=== PATIENT | female | born 1950 | race Caucasian/White ===

== ENCOUNTER 2020-12-21 04:26 | Outpatient (CLI) | payer MEDICARE, OTHER, SELFPAY ==
[2020-12-21 08:14] LABS: Abs Immature Grans 0.01 10^3/uL (0.0-0.06); Absolute Eosinophil Count 0.15 10^3/uL (0.0-0.7); Absolute Monocyte Count 0.79 10^3/uL (0.1-0.8); Absolute Neutrophil Count 3.51 10^3/uL (1.2-6.7); Basophils % 1.7; Eosinophils % 2.5; HCT 42.2 % (36.0-46.0); Immature Grans % 0.2; Lymphocytes % 24.8; MCH 28.3 pg (27.0-33.0); MCHC 33.2 % (32.0-36.0); MCV 85.3 fL (80-95); MPV 8.4 fL (8.0-11.0); Neutrophils % 57.8; Nucleated RBC 0 %; Platelet Count 408 10^3/uL (130-400); RBC 4.95 10^6/uL (3.93-5.22); RDW 13.3 % (11.7-14.6); RDW-SD 41.2 fL; WBC 6.06 10^3/uL (4.4-10.8)
[2020-12-21 08:27] LABS: ALT 14 U/L (14-59); AST 13 U/L (15-37); Albumin 3.7 g/dL (3.4-5.0); Alkaline Phosphatase 82 U/L (46-116); Anion Gap 12.4 mmol/L (3-11); BUN 10 mg/dL (7-18); Bilirubin, Total 0.4 mg/dL (0.2-1.0); CO2 24.6 mmol/L (21.0-32.0); CREATININE 0.9 mg/dL (0.55-1.02); Calcium 9.3 mg/dL (8.5-10.1); Chloride 102 mmol/L (98-107); Glucose 75 mg/dL (74-106); Potassium 4.1 mmol/L (3.5-5.1); Sodium 139 mmol/L (136-145); Total Protein 7.6 g/dL (6.4-8.2)
== END 2020-12-21 04:27 | disposition home or self-care (01) ==
LOC: LBO 04:27
PROVIDERS: PCP Family Medicine; Visit Provider Internal Medicine Medical Oncology
DX: C34.91 Malignant neoplasm of unspecified part of right bronchus or lung (principal)
CPT/HCPCS: 36415; 80053; 83735; 85025

== ENCOUNTER 2021-01-11 03:16 | Outpatient (RCR) | payer MEDICARE, OTHER, SELFPAY ==
[2021-01-04 13:38] LABS: Abs Immature Grans 0.02 10^3/uL (0.0-0.06); HCT 34.6 % (36.0-46.0); MCH 28.5 pg (27.0-33.0); MCHC 34.7 % (32.0-36.0); MCV 82.2 fL (80-95); MPV 8.5 fL (8.0-11.0); Nucleated RBC 0 %; RBC 4.21 10^6/uL (3.93-5.22); RDW 12.8 % (11.7-14.6); RDW-SD 37.4 fL
[2021-01-04 13:48] LABS: ALT 13 U/L (14-59); AST 8 U/L (15-37); Alkaline Phosphatase 76 U/L (46-116); Anion Gap 13.1 mmol/L (3-11); BUN 11 mg/dL (7-18); Bilirubin, Total 0.4 mg/dL (0.2-1.0); CO2 23.9 mmol/L (21.0-32.0); CREATININE 0.9 mg/dL (0.55-1.02); Calcium 8.8 mg/dL (8.5-10.1); Chloride 98 mmol/L (98-107); Glucose 116 mg/dL (74-106); Magnesium 1.8 mg/dL (1.8-2.4); Sodium 135 mmol/L (136-145)
[2021-01-04 14:06] LABS: Potassium 2.8 mmol/L (3.5-5.1)
[2021-01-04 14:13] LABS: Absolute Lymphocyte Count 0.82 10^3/uL (1.2-3.4); Atypical Lymphocytes % 8; Bands % 6
[2021-01-04 14:14] LABS: Absolute Monocyte Count 0.73 10^3/uL (0.1-0.8)
[2021-01-04 14:15] LABS: Platelet Count 307 10^3/uL (130-400); WBC 1.91 10^3/uL (4.4-10.8)
[2021-01-04 14:16] LABS: Absolute Neutrophil Count 0.36 10^3/uL (1.2-6.7); Diff Comment Manual Differential; RBC Morphology Normal
[2021-01-11 08:46] LABS: Abs Immature Grans 1.03 10^3/uL (0.0-0.06); HCT 33.3 % (36.0-46.0); HGB 11.3 g/dL (11.2-15.7); MCH 28.5 pg (27.0-33.0); MCHC 33.9 % (32.0-36.0); MCV 83.9 fL (80-95); MPV 8.3 fL (8.0-11.0); Nucleated RBC 0 %; RBC 3.97 10^6/uL (3.93-5.22); RDW 14.1 % (11.7-14.6); RDW-SD 42.4 fL; WBC 9.55 10^3/uL (4.4-10.8)
[2021-01-11 08:56] LABS: ALT 18 U/L (14-59); AST 16 U/L (15-37); Alkaline Phosphatase 101 U/L (46-116); Anion Gap 11.3 mmol/L (3-11); BUN 6 mg/dL (7-18); Bilirubin, Total 0.2 mg/dL (0.2-1.0); CO2 25.7 mmol/L (21.0-32.0); CREATININE 0.8 mg/dL (0.55-1.02); Calcium 8.8 mg/dL (8.5-10.1); Chloride 103 mmol/L (98-107); Glucose 83 mg/dL (74-106); Magnesium 1.9 mg/dL (1.8-2.4); Potassium 3.9 mmol/L (3.5-5.1); Sodium 140 mmol/L (136-145); Total Protein 6.6 g/dL (6.4-8.2)
[2021-01-11] MEDS: Normal Saline Flush 10 ML SYR IVP (08:56)
[2021-01-11 09:27] LABS: Absolute Neutrophil Count 6.02 10^3/uL (1.2-6.7); Bands % 4; Platelet Count 624 10^3/uL (130-400)
[2021-01-11 09:28] LABS: Absolute Lymphocyte Count 1.81 10^3/uL (1.2-3.4); Absolute Monocyte Count 0.96 10^3/uL (0.1-0.8); Diff Comment Manual Differential; Metamyelocytes % 2; Myelocytes % 6
[2021-01-11 09:29] LABS: RBC Morphology Normal
== END 2021-01-15 23:59 | disposition home or self-care (01) ==
LOC: INF 03:16
PROVIDERS: PCP Family Medicine; Visit Provider Internal Medicine Medical Oncology
DX: C34.91 Malignant neoplasm of unspecified part of right bronchus or lung (principal)
CPT/HCPCS: 36415; 80053; 83735; 85025

== ENCOUNTER 2021-01-22 17:50 | Outpatient (REF) | payer MEDICARE, OTHER, SELFPAY ==
[2021-01-22 19:10] LABS: Bilirubin Negative (Negative); Blood Trace-intact (Negative); Clarity Clear (Clear); Glucose Negative (Negative); Ketones Negative (Negative); Leukocyte Esterase Negative (Negative); Nitrite Negative (Negative); Urobilinogen 0.2 EU/dL (Up TO 0.2); pH 5.5 (5-8)
[2021-01-22 19:30] LABS: Bacteria Negative HPF (Negative); C & S Indicated? No; Casts Negative LPF (Negative); Crystals Negative HPF (Negative); Epithelial Cells Rare HPF (Negative); Mucus Negative (Negative); Other Cells Negative (Negative); RBC 0-2 HPF (0-2); WBC 0-2 HPF (0-5)
== END 2021-01-22 17:51 | disposition home or self-care (01) ==
LOC: LBN 17:50
PROVIDERS: PCP Family Medicine; Visit Provider Radiology Radiation Oncology
DX: C34.91 Malignant neoplasm of unspecified part of right bronchus or lung (principal); R10.9 Unspecified abdominal pain
CPT/HCPCS: 81003; 81015

== ENCOUNTER 2021-02-01 02:41 | Outpatient (RCR) | payer MEDICARE, OTHER, SELFPAY ==
[2021-02-01] MEDS: Normal Saline Flush 10 ML SYR IVP (08:09)
[2021-02-01 08:30] LABS: Abs Immature Grans 0.39 10^3/uL (0.0-0.06); HGB 9.5 g/dL (11.2-15.7); MCH 28.4 pg (27.0-33.0); MCHC 33.9 % (32.0-36.0); MCV 83.8 fL (80-95); MPV 8.6 fL (8.0-11.0); RBC 3.34 10^6/uL (3.93-5.22); RDW 15.8 % (11.7-14.6); WBC 7.46 10^3/uL (4.4-10.8)
[2021-02-01 08:47] LABS: ALT 14 U/L (14-59); AST 15 U/L (15-37); Albumin 2.7 g/dL (3.4-5.0); Alkaline Phosphatase 82 U/L (46-116); Anion Gap 6.3 mmol/L (3-11); BUN 7 mg/dL (7-18); Bilirubin, Total 0.2 mg/dL (0.2-1.0); CO2 29.7 mmol/L (21.0-32.0); CREATININE 0.8 mg/dL (0.55-1.02); Calcium 8.2 mg/dL (8.5-10.1); Chloride 105 mmol/L (98-107); Glucose 105 mg/dL (74-106); Magnesium 1.5 mg/dL (1.8-2.4); Sodium 141 mmol/L (136-145); Total Protein 5.7 g/dL (6.4-8.2)
[2021-02-01 09:00] LABS: Potassium 2.5 mmol/L (3.5-5.1)
[2021-02-01 09:12] LABS: Absolute Lymphocyte Count 1.19 10^3/uL (1.2-3.4); Absolute Monocyte Count 0.15 10^3/uL (0.1-0.8); Absolute Neutrophil Count 6.04 10^3/uL (1.2-6.7); Atypical Lymphocytes % 7; Bands % 1; Platelet Count 395 10^3/uL (130-400)
[2021-02-01 09:13] LABS: Nucleated RBC 0 %
[2021-02-01 09:14] LABS: Diff Comment Manual Differential; Metamyelocytes % 1
[2021-02-01 09:15] LABS: Polychromasia Present
== END 2021-02-15 23:59 | disposition home or self-care (01) ==
LOC: INF 02:41
PROVIDERS: PCP Family Medicine; Visit Provider Internal Medicine Medical Oncology
DX: C34.91 Malignant neoplasm of unspecified part of right bronchus or lung (principal); Z45.2 Encounter for adjustment and management of vascular access device
CPT/HCPCS: 36591; 80053; 83735; 85025

== ENCOUNTER 2021-03-01 10:00 | Outpatient (RCR) | payer MEDICARE, OTHER, SELFPAY ==
[2021-02-22] MEDS: Normal Saline Flush 10 ML SYR IVP (08:14)
[2021-02-22 08:34] LABS: Abs Immature Grans 0.03 10^3/uL (0.0-0.06); Absolute Basophil Count 0.02 10^3/uL (0.0-0.2); Absolute Lymphocyte Count 0.49 10^3/uL (1.2-3.4); Absolute Monocyte Count 0.38 10^3/uL (0.1-0.8); Basophils % 1.3; HCT 23.2 % (36.0-46.0); HGB 7.9 g/dL (11.2-15.7); Lymphocytes % 32.9; MCH 29.6 pg (27.0-33.0); MCHC 34.1 % (32.0-36.0); MCV 86.9 fL (80-95); MPV 8.7 fL (8.0-11.0); Monocytes % 25.5; Neutrophils % 38.3; Nucleated RBC 0 %; Platelet Count 317 10^3/uL (130-400); RBC 2.67 10^6/uL (3.93-5.22); RDW 17.2 % (11.7-14.6); RDW-SD 49.1 fL
[2021-02-22 08:37] LABS: ALT 23 U/L (14-59); AST 22 U/L (15-37); Albumin 2.9 g/dL (3.4-5.0); Alkaline Phosphatase 67 U/L (46-116); Anion Gap 10.8 mmol/L (3-11); BUN 6 mg/dL (7-18); Bilirubin, Total 0.3 mg/dL (0.2-1.0); CO2 28.2 mmol/L (21.0-32.0); CREATININE 0.8 mg/dL (0.55-1.02); Calcium 8.2 mg/dL (8.5-10.1); Chloride 102 mmol/L (98-107); Glucose 132 mg/dL (74-106); Magnesium 1.4 mg/dL (1.8-2.4); Sodium 141 mmol/L (136-145); Total Protein 5.9 g/dL (6.4-8.2)
[2021-02-22 09:16] LABS: Anisocytosis 1+; Diff Comment Diff Reviewed; WBC 1.49 10^3/uL (4.4-10.8)
[2021-02-22 09:17] LABS: Absolute Neutrophil Count 0.57 10^3/uL (1.2-6.7); Hypochromasia 1+; Polychromasia Present
[2021-03-01] MEDS: Heparin 500 UNITS/5 ML SYRINGE IV (10:24)
[2021-03-01] MEDS: Normal Saline Flush 10 ML SYR IVP (10:24)
[2021-03-01 10:45] LABS: Abs Immature Grans 0.02 10^3/uL (0.0-0.06); Absolute Basophil Count 0.06 10^3/uL (0.0-0.2); Absolute Eosinophil Count 0.01 10^3/uL (0.0-0.7); Absolute Lymphocyte Count 0.45 10^3/uL (1.2-3.4); Absolute Neutrophil Count 2.02 10^3/uL (1.2-6.7); Eosinophils % 0.3; HCT 31.3 % (36.0-46.0); HGB 10.2 g/dL (11.2-15.7); Immature Grans % 0.7; Lymphocytes % 15.2; MCH 30.3 pg (27.0-33.0); MCHC 32.6 % (32.0-36.0); MCV 92.9 fL (80-95); MPV 8.3 fL (8.0-11.0); Monocytes % 13.5; Neutrophils % 68.3; Nucleated RBC 0 %; Platelet Count 351 10^3/uL (130-400); RBC 3.37 10^6/uL (3.93-5.22); RDW 18.4 % (11.7-14.6); WBC 2.96 10^3/uL (4.4-10.8)
[2021-03-01 10:57] LABS: ALT 20 U/L (14-59); AST 18 U/L (15-37); Albumin 3.3 g/dL (3.4-5.0); Alkaline Phosphatase 75 U/L (46-116); Anion Gap 8.5 mmol/L (3-11); BUN 7 mg/dL (7-18); Bilirubin, Total 0.3 mg/dL (0.2-1.0); CO2 26.5 mmol/L (21.0-32.0); CREATININE 0.7 mg/dL (0.55-1.02); Calcium 8.8 mg/dL (8.5-10.1); Chloride 102 mmol/L (98-107); Glucose 163 mg/dL (74-106); Magnesium 1.7 mg/dL (1.8-2.4); Potassium 4.3 mmol/L (3.5-5.1); Sodium 137 mmol/L (136-145); Total Protein 6.3 g/dL (6.4-8.2)
== END 2021-03-17 23:59 | disposition home or self-care (01) ==
LOC: INF 10:00
PROVIDERS: PCP Family Medicine; Visit Provider Internal Medicine Medical Oncology
DX: C34.91 Malignant neoplasm of unspecified part of right bronchus or lung (principal); Z45.2 Encounter for adjustment and management of vascular access device
CPT/HCPCS: 36591; 80053; 83735; 85025

== ENCOUNTER 2021-04-05 02:17 | Outpatient (RCR) | payer MEDICARE, OTHER, SELFPAY ==
[2021-04-05] MEDS: Normal Saline Flush 10 ML SYR IVP (10:00)
[2021-04-05] MEDS: Heparin 500 UNITS/5 ML SYRINGE IV (10:00)
[2021-04-05 10:18] LABS: Abs Immature Grans 0.06 10^3/uL (0.0-0.06); Absolute Basophil Count 0.08 10^3/uL (0.0-0.2); Absolute Eosinophil Count 0.01 10^3/uL (0.0-0.7); Absolute Lymphocyte Count 0.71 10^3/uL (1.2-3.4); Absolute Monocyte Count 0.74 10^3/uL (0.1-0.8); Absolute Neutrophil Count 4.07 10^3/uL (1.2-6.7); Basophils % 1.4; Eosinophils % 0.2; HCT 27.8 % (36.0-46.0); HGB 9.3 g/dL (11.2-15.7); Immature Grans % 1.1; Lymphocytes % 12.5; MCHC 33.5 % (32.0-36.0); MCV 95.5 fL (80-95); MPV 8.8 fL (8.0-11.0); Monocytes % 13.1; Neutrophils % 71.7; Nucleated RBC 0 %; Platelet Count 250 10^3/uL (130-400); RBC 2.91 10^6/uL (3.93-5.22); RDW-SD 59.9 fL; WBC 5.67 10^3/uL (4.4-10.8)
[2021-04-05 10:37] LABS: ALT 21 U/L (14-59); AST 15 U/L (15-37); Albumin 3.6 g/dL (3.4-5.0); Alkaline Phosphatase 57 U/L (46-116); Anion Gap 9.2 mmol/L (3-11); BUN 12 mg/dL (7-18); Bilirubin, Total 0.3 mg/dL (0.2-1.0); CO2 24.8 mmol/L (21.0-32.0); CREATININE 0.8 mg/dL (0.55-1.02); Calcium 8.9 mg/dL (8.5-10.1); Chloride 104 mmol/L (98-107); Glucose 90 mg/dL (74-106); Magnesium 1.6 mg/dL (1.8-2.4); Potassium 4.2 mmol/L (3.5-5.1); Sodium 138 mmol/L (136-145); Total Protein 6.7 g/dL (6.4-8.2)
== END 2021-04-17 23:59 | disposition home or self-care (01) ==
LOC: INF 02:17
PROVIDERS: PCP Family Medicine; Visit Provider Internal Medicine Medical Oncology
DX: C34.91 Malignant neoplasm of unspecified part of right bronchus or lung (principal); Z45.2 Encounter for adjustment and management of vascular access device
CPT/HCPCS: 36591; 80053; 83735; 85025

== ENCOUNTER 2021-07-05 02:20 | Outpatient (RCR) | payer MEDICARE, OTHER, SELFPAY ==
[2021-07-05] MEDS: Heparin 500 UNITS/5 ML SYRINGE IV (12:04)
[2021-07-05] MEDS: Normal Saline Flush 10 ML SYR IVP (12:04)
[2021-07-05 12:10] LABS: Abs Immature Grans 0.01 10^3/uL (0.0-0.06); Absolute Basophil Count 0.06 10^3/uL (0.0-0.2); Absolute Eosinophil Count 0.26 10^3/uL (0.0-0.7); Absolute Lymphocyte Count 0.51 10^3/uL (1.2-3.4); Absolute Monocyte Count 0.76 10^3/uL (0.1-0.8); Absolute Neutrophil Count 3.57 10^3/uL (1.2-6.7); Basophils % 1.2; HGB 11.3 g/dL (11.2-15.7); Immature Grans % 0.2; Lymphocytes % 9.9; MCHC 34.2 % (32.0-36.0); MCV 90.4 fL (80-95); MPV 8.3 fL (8.0-11.0); Monocytes % 14.7; Nucleated RBC 0 %; Platelet Count 268 10^3/uL (130-400); RBC 3.65 10^6/uL (3.93-5.22); RDW 11.7 % (11.7-14.6); RDW-SD 38.7 fL; WBC 5.17 10^3/uL (4.4-10.8)
[2021-07-05 12:24] LABS: ALT 13 U/L (14-59); AST 13 U/L (15-37); Alkaline Phosphatase 67 U/L (46-116); Anion Gap 7.2 mmol/L (3-11); BUN 10 mg/dL (7-18); Bilirubin, Total 0.4 mg/dL (0.2-1.0); CO2 29.8 mmol/L (21.0-32.0); CREATININE 0.7 mg/dL (0.55-1.02); Calcium 8.6 mg/dL (8.5-10.1); Chloride 103 mmol/L (98-107); Glucose 95 mg/dL (74-106); Magnesium 1.9 mg/dL (1.8-2.4); Potassium 4.1 mmol/L (3.5-5.1); Sodium 140 mmol/L (136-145); Total Protein 6.6 g/dL (6.4-8.2)
== END 2021-07-18 23:59 | disposition home or self-care (01) ==
LOC: INF 02:20
PROVIDERS: PCP Family Medicine; Visit Provider Internal Medicine Medical Oncology
DX: C34.91 Malignant neoplasm of unspecified part of right bronchus or lung (principal); Z45.2 Encounter for adjustment and management of vascular access device
CPT/HCPCS: 36591; 80053; 83735; 85025

== ENCOUNTER 2021-10-25 02:57 | Outpatient (RCR) | payer MEDICARE, OTHER, SELFPAY ==
[2021-10-25 12:13] LABS: Absolute Basophil Count 0.07 10^3/uL (0.0-0.2); Absolute Eosinophil Count 0.04 10^3/uL (0.0-0.7); Absolute Lymphocyte Count 0.81 10^3/uL (1.2-3.4); Absolute Monocyte Count 0.59 10^3/uL (0.1-0.8); Absolute Neutrophil Count 2.65 10^3/uL (1.2-6.7); Basophils % 1.7; HCT 36.3 % (36.0-46.0); HGB 12.2 g/dL (11.2-15.7); Lymphocytes % 19.5; MCH 30.9 pg (27.0-33.0); MCHC 33.6 % (32.0-36.0); MCV 91.9 fL (80-95); MPV 8.3 fL (8.0-11.0); Monocytes % 14.2; Neutrophils % 63.6; Nucleated RBC 0 %; Platelet Count 243 10^3/uL (130-400); RBC 3.95 10^6/uL (3.93-5.22); RDW 13.3 % (11.7-14.6); RDW-SD 45.5 fL; WBC 4.16 10^3/uL (4.4-10.8)
[2021-10-25] MEDS: Heparin 500 UNITS/5 ML SYRINGE IV (12:20)
[2021-10-25] MEDS: Normal Saline Flush 10 ML SYR IVP (12:20)
[2021-10-25 12:26] LABS: ALT 26 U/L (14-59); AST 25 U/L (15-37); Albumin 3.7 g/dL (3.4-5.0); Alkaline Phosphatase 63 U/L (46-116); Anion Gap 7.4 mmol/L (3-11); BUN 13 mg/dL (7-18); Bilirubin, Total 0.4 mg/dL (0.2-1.0); CO2 26.6 mmol/L (21.0-32.0); CREATININE 0.7 mg/dL (0.55-1.02); Calcium 9.2 mg/dL (8.5-10.1); Chloride 102 mmol/L (98-107); Glucose 99 mg/dL (74-106); Potassium 4.6 mmol/L (3.5-5.1); Sodium 136 mmol/L (136-145); Total Protein 7.1 g/dL (6.4-8.2)
== END 2021-11-15 23:59 | disposition home or self-care (01) ==
LOC: INF 02:57
PROVIDERS: PCP Family Medicine; Visit Provider Internal Medicine Medical Oncology
DX: C34.91 Malignant neoplasm of unspecified part of right bronchus or lung (principal)
CPT/HCPCS: 36591; 80053; 85025